=== PATIENT | male | born 1970 | race Two or more races ===

== ENCOUNTER 2025-02-12 13:16 | Emergency (ER) | payer MEDICAID, SELFPAY ==
[2025-02-12 13:18] VITALS: BMI 29.7
[2025-02-12 13:30] VITALS: BP 134/77; PULSE 60; RESP 18; TEMP 37; O2SAT 97
--- NOTE | 2025-02-12 13:39 | XR_ITS ---
Examination: CT abdomen and pelvis without contrast. Coronal 3-D reconstructions. Sagittal 2-D reconstructions. Date and time of exam:February 12, 2025 1447 hours, comparison November 27, 2023 INDICATIONS: Right lower abdominal pain beginning 2 weeks ago. CTDI: vol (mGy): 8.16 DLP: (mGycm): 508 Technique: Axial images of the abdomen have been obtained, 3 mm slice thickness Intravenous contrast material has not been administered. Low dose protocols were performed. One or more of the following dose reduction techniques were used; automated exposure control, adjustment of the mA and/or KV according to patient size, use of iterative reconstruction technique. Findings: No focal liver or splenic lesions No gallstones. No pancreatic or adrenal mass. 2 mm, 1 mm, 2 mm right renal calculi, no hydronephrosis or ureteral calculi Aorta normal size. Normal appendix No bowel obstruction Scattered colonic diverticulosis Normal seminal vesicles No significant prostatomegaly Urinary bladder wall thickening up to 4 mm no bladder calculi Prominent osteopenia IMPRESSION: Nonobstructing right renal calculi, no hydronephrosis or ureteral calculi Normal appendix Mild urinary bladder wall thickening, consider cystitis
--- NOTE | 2025-02-12 13:39 | PD.EDRME ---
Rapid Medical Screening Exam RME Arrival date/time: 02/12/25 13:16 54-year-old male presents to the Emergency Department for complaint of abdominal pain Chief Complaint: Abdominal Pain Vital signs: Vital Signs Temperature 98.6 F 02/12/25 13:30 Pulse Rate 60 02/12/25 13:30 Respiratory Rate 18 02/12/25 13:30 Blood Pressure 134/77 H 02/12/25 13:30 Pulse Oximetry (%) 97 02/12/25 13:30 Oxygen Delivery Method Room Air 02/12/25 13:30
[2025-02-12 14:15] LABS: Collection Type, Urine Clean Catch
[2025-02-12 14:23] LABS: Bilirubin,Urine Negative (Negative); Blood,Urine Negative (Negative); Clarity,Urine Clear (Clear/Hazy); Color,Urine Colorless (Lt Yel-Yel); Culture Indicated,Urine Not Indicated; Glucose, Urine Negative (Negative); Ketones,Urine Negative (Negative); Leukocyte Esterase,Urine Negative (Negative); Nitrite,Urine Negative (Negative); PH,Urine 6.5 (5.0-7.0); Protein,Urine Negative (Neg - Trace); RBC,Urine 1 /hpf (0-3); Specific Gravity,Urine 1.006 (1.001-1.035); Squamous Epithelial Cell,Urine < 1 /hpf (0-5); Urobilinogen,Urine Negative mg/dL (0.0-1.0); WBC,Urine 1 /hpf (0-5)
[2025-02-12 14:25] LABS: Basophils # (Auto) 0.0 Thou/mm3 (0.0-0.2); Basophils % (Auto) 1 % (0-2.5); Eosinophils # (Auto) 0.1 Thou/mm3 (0.0-0.5); Eosinophils % (Auto) 2 % (0-10); Hematocrit 40.1 % (41.0-53.0); Hemoglobin 13.8 g/dL (13.5-16.0); Immature Granulocytes Auto 0.01 Thou/mm3 (0.00-0.00); Lymphocytes # (Auto) 1.8 Thou/mm3 (1.0-4.8); Lymphocytes % (Auto) 41 % (10-50); Mean Corpuscular HGB Conc 34.4 g/dl (31.0-37.0); Mean Corpuscular Hemoglobin 31.4 pg (25.0-35.0); Mean Corpuscular Volume 91 fL (80-100); Monocytes # (Auto) 0.3 Thou/mm3 (0.0-0.8); Monocytes % (Auto) 7 % (0-12); Neutrophils # (Auto) 2.3 Thou/mm3 (1.8-7.7); Neutrophils % (Auto) 50 % (37-80); Nucleated Red Blood Cell # 0.00 Thou/mm3 (0.00-0.00); Nucleated Red Blood Cell % 0 /100 WBC (0); Platelet Count 199 Thou/mm3 (140-440); RDW Standard Deviation 40.3 fL (35.1-43.9); Red Blood Count 4.40 Miln/mm3 (4.50-5.90); White Blood Count 4.5 Thou/mm3 (3.8-10.6)
[2025-02-12 14:47] LABS: Anion Gap 10 (7-16); Blood Urea Nitrogen 10 mg/dL (9-23); Carbon Dioxide 27.5 mMol/L (20.0-31.0); Chloride 105 mMol/L (98-107); Creatinine (Component) 0.9 mg/dL (0.6-1.3); Potassium 3.6 mMol/L (3.4-5.1); Sodium 142 mMol/L (136-145)
[2025-02-12 14:48] LABS: Alanine Aminotransferase 27 U/L (10-49); Albumin, Serum 4.6 gm/dL (3.5-5.0); Albumin/Globulin Ratio 2.3 (1.2-2.2); Alkaline Phosphatase 75 U/L (46-116); Aspartate Amino Transferase 31 U/L (0-34); BUN/Creatinine Ratio 11 Ratio (12-20); Bilirubin,Total 0.6 mg/dL (0.3-1.2); Calcium 9.8 mg/dL (8.3-10.6); Calcium (Corrected) 9.8 mg/dL (8.5-10.1); Estimated Creatinine Clearance 94.0 mL/min (>60); Globulin 2.0 gm/dL (2.3-3.5); Glucose 93 mg/dL (74-106); Osmolality,Calculated 282 (275-295); Total Protein 6.6 gm/dL (5.7-8.2); eGFR > 60 See Note
--- NOTE | 2025-02-12 15:27 | PD.EDABDPN ---
ED Abdominal Pain RME/HPI General Chief Complaint: Abdominal Pain Stated complaint: RIGHT LOWER ABD PAIN X2 WEEKS Time seen by provider: 02/12/25 13:40 Arrival date/time: 02/12/25 13:16 RME / HPI RME / HPI narrative: 54-year-old male presents to the Emergency Department for complaint of abdominal pain, right lower quadrant, comes and goes, sometimes it is severe described as sharp pain. No vomiting no fever no other complaints noted no diarrhea diarrhea no constipation no hematuria or frequency. Related Data Previous Rx's ?Medication ?Instructions ?Recorded ibuprofen 800 mg tablet 800 mg PO Q8H PRN pain #30 tabs 02/12/25 Allergies Allergy/AdvReac Type Severity Reaction Status Date / Time No Known Allergies Allergy Verified 02/12/25 13:18 Review of Systems Review of Systems Narrative Review of Systems: Review of system reviewed and within normal limits except mentioned in HPI ED Exam Narrative Physical exam: VITAL SIGNS: Reviewed. GENERAL APPEARANCE: Alert and interactive, follows commands, no acute distress, HEAD AND FACE: Non-traumatic. ENT: PERRL, pink conjunctivitis, eyelid no trauma, Mucous membrane moist. NECK: Supple, nontender, no nuchal rigidity. CHEST: No tenderness, no crepitus, no paradoxical movement, no retractions. LUNGS: Clear, well ventilated, symmetric, no rales, no wheezing, no ronchi, no stridor, good breath sounds bilaterally. HEART: Regular rate, regular rhythm, no murmur, no gallops. ABDOMEN: Soft, positive bowel sounds, nondistended, no guarding, nontender, no rebound, no masses, RECTAL: Deferred. GENITAL: Deferred. NEUROLOGICAL: Gross motor function intact sensory function intact, Appropriate for age. MUSCULOSKELETAL: low back nontender, full range of motion. EXTREMITIES: Nontender, full range of motion. SKIN: Color pink, dry, no rash, no lacerations, no abrasions, no contusions. LYMPHATICS: Deferred. Course Quality Measures none Orders Category Date Time Status CT abdomen pelvis wo con Stat Exams 02/12/25 13:39 Completed CBC Stat Lab 02/12/25 14:15 Completed Comprehensive Metabolic Panel Stat Lab 02/12/25 14:15 Completed Lipase Stat Lab 02/12/25 14:15 Completed UA, C/S IF [Urinalysis, C/S if Indicated] Stat Lab 02/12/25 14:11 Completed Vital Signs Vital signs: Vital Signs Temperature 98.6 F 02/12/25 13:30 Pulse Rate 60 02/12/25 13:30 Respiratory Rate 18 02/12/25 13:30 Blood Pressure 134/77 H 02/12/25 13:30 Pulse Oximetry (%) 97 02/12/25 13:30 Oxygen Delivery Method Room Air 02/12/25 13:30 Abdominal Pain [facility] Narrative [facility] Narrative:: 54-year-old male presents to the Emergency Department for complaint of abdominal pain, right lower quadrant, comes and goes, sometimes it is severe described as sharp pain. No vomiting no fever no other complaints noted no diarrhea diarrhea no constipation no hematuria or frequency. Urinalysis positive for hematuria no UTI noted CBC no leukocytosis. The rest of the labs unremarkable. CT scan of the abdomen and pelvis showed multiple kidney stone otherwise no ureterolithiasis no obstructive uropathy noted. No appendicitis noted there is unremarkable. Results discussed with the patient. Patient was advised to follow-up closely with PCP and for referral to urologist regarding multiple small kidney stones. Patient appears nontoxic and hemodynamically stable .Decision to discharge the patient. The patient/family was given an opportunity to ask questions and understood their discharge instructions. Discharge instructions specifically included follow up provider and time frame, current and/or new medications and possible side effects, indications for sooner follow up or return to the emergency department, and the expected course of current diagnosis. Patient reports feeling better as well and giving evidence of significant clinical improvement, I believe patient is now a candidate for discharge. Patient data External records reviewed:: None Clinical information provided by:: patient Social determinants that could affect healthcare access:: none Patient has the following chronic illnesses:: None How is presenting disease/condition affected by chronic disease/condition?: exacerbated by Evaluation data The following diagnostics were reviewed and interpreted by me:: lab results and radiology exam(s) Lab and/or radiology exams considered but not ordered:: None Interpretation Summary: See results [facility] Medications / Prescriptions Medications or Prescriptions considered but not ordered:: None Medication administrations:: Toradol IM Consultations Consultation(s) initiated? (list below): No Diagnosis Differential diagnosis abdominal pain: abdominal pain, acute appendicitis and calculus of kidney Most likely diagnosis given after review of the tests above:: Renal colic, nephrolithiasis Admission Indicated Admission indicated?: not indicated Admission Request Was there a request for admission?: No Disposition Plan Disposition Plan: Discharge Discharge Attestation Discharge Attestation: The patient was given an opportunity to ask questions and understood the discharge instructions. Discharge instructions specifically effects, indications for sooner follow up or return to the emergency department, and the expected course of current diagnosis. Patient condition: Stable Discharge Plan Plan Patient Disposition: HOME (Self Care) Discharge Disposition comment: Stable Prescriptions/Referrals Prescriptions/Med Rec: New ibuprofen 800 mg tablet 800 mg PO Q8H PRN (Reason: pain) Qty: 30 0RF Referrals: Tristan Mcdonald MD [Primary Care Provider, Family Practice] - In 1 week Problem List Clinical Impression: Ureterolithiasis Patient/Caregiver Discharge Instructions Discharge Activity: activity as tolerated Education Materials: ED Kidney Stone w/ Colic Additional Instructions: Thank you for the opportunity for serving you today. You are stable for discharged . You are advised to: Follow-up with your PCP in 1 to 2 days and ask for referral to urologist regarding your kidney stones Return to ED for worsening of symptoms Increase oral fluids Take medication as prescribed Print Language: Lao Stand Alone Forms: Karen Award Info., Patient Portal Info Letter PA/SAMMY Supervising Physician PA/SAMMY Supervising Physician: MD Alicja
--- NOTE | 2025-02-12 15:33 | PC.NURSE ---
Addendum entered by Manda Gomez RN 02/12/25 15:54: @1553 - PT CALLED FROM ED LOBBY & ED ENTRANCE AGAIN; NO ANSWER AT THIS TIME. Original Note: @1533 - PT CALLED FROM ED LOBBY & ED ENTRANCE; NO ANSWER AT THIS TIME.
--- NOTE | 2025-02-12 16:10 | PC.NURSE ---
NA x3 at 1610 for discharge, patient spoken with about results with provider, left before receiving discharge paperwork.
== END 2025-02-12 16:12 | disposition home or self-care (01) ==
PROVIDERS: Nurse Practitioner Primary Care; Emergency Provider Family Medicine; PCP Family Medicine
DX: N20.2 Calculus of kidney with calculus of ureter (principal)
CPT/HCPCS: 36415; 74176; 80053; 81001; 83690; 85025; 99283